=== PATIENT | female | born 1985 ===

== ENCOUNTER 2018-04-27 23:28 | Emergency (ER) | payer SELFPAY ==
[~2018-04-27] VITALS: Ht 160 cm; Wt 68.0 kg
[2018-04-27 23:31] VITALS: BP 136/82
== END 2018-04-28 01:30 | disposition home or self-care (01) ==
LOC: ER 23:44
DX: T51.0X1A Toxic effect of ethanol, accidental (unintentional), initial encounter (principal); T74.21XA Adult sexual abuse, confirmed, initial encounter; G93.40 Encephalopathy, unspecified; Z87.2 Personal history of diseases of the skin and subcutaneous tissue; Y92.89 Other specified places as the place of occurrence of the external cause
CPT/HCPCS: 99283